=== PATIENT | male | born 1955 | race Caucasian/White ===

== ENCOUNTER 2025-01-13 20:03 | Emergency (ER) | payer MEDICARE, OTHER, SELFPAY ==
[2025-01-13 20:08] VITALS: BP 147/85
[2025-01-13 20:45] LABS: Urine Albumin 3+ (Neg - Trace); Urine Bilirubin Negative (Negative); Urine Character Clear (Clear); Urine Color Yellow; Urine Glucose Negative (Negative); Urine Ketone Negative (Negative); Urine Leukocyte 3+ (Negative); Urine Nitrite Positive (Negative); Urine Occult Blood 3+ (Negative); Urine Urobilinogen Negative (Neg - 1+)
[2025-01-13 20:55] LABS: Urine Squamous Cell 0-2 /LPF (Few)
[2025-01-13 20:56] LABS: Urine Bacteria Many (Negative); Urine White Cell >100 /HPF (0-5)
[2025-01-14 00:07] VITALS: BMI 34.9
[2025-01-14] MEDS: ROCEPHIN 1000 MG IV (00:18)
[2025-01-14 00:31] VITALS: BP 144/87
[2025-01-14 00:36] LABS: % Basophils 0.5 % (0-2); % Eosinophils 2.8 % (0-6); % Immature Granulocytes 1.2 % (0-0.5); % Lymphocytes 15.1 % (20.5-51.1); % Neutrophils 69.4 % (42.2-75.2); Absolute Basophils 0.1 10^3/uL (0-0.2); Absolute Eosinophils 0.3 10^3/uL (0-0.7); Absolute Immature Granulocytes 0.1 10^3/uL (0-0.05); Absolute Lymphocytes 1.5 10^3/uL (1.2-3.4); Absolute Monocytes 1.1 10^3/uL (0.1-0.6); Absolute Neutrophils 6.8 10^3/uL (1.4-6.5); Hematocrit 42.9 % (39.0-52.0); Hemoglobin 13.9 g/dL (13.0-18.0); Mean Corp Hgb Conc. 32.4 g/dL (33.0-37.0); Mean Corpuscular Volume 89.4 fL (80.0-94.0); Mean Platelet Volume 10.4 fL (7.4-10.4); Nucleated Red Blood Cells % 0 % (-); Platelet Count 313 10^3/uL (130-400); Red Cell Dist. Width 14.6 % (11.5-14.5); White Blood Cell Count 9.7 10^3/uL (4.8-10.8)
[2025-01-14 00:38] LABS: Blood Urea Nitrogen 37 mg/dl (9-20); Calcium 10.5 mg/dl (8.4-10.2); Carbon Dioxide 19 mmol/L (22-30); Chloride 115 mmol/L (98-107); Estimated Creatinine Clearance 68 ml/min; Glucose 121 mg/dl (70-99); Potassium 4.7 mmol/L (3.5-5.1); Sodium 145 mmol/L (135-145); eGFR > 60.00
--- NOTE | 2025-01-14 01:44 | ED.GENMED ---
History of Present Illness
General
Chief Complaint: Male Genito-Urinary Symptoms
Time Seen by Provider: 01/13/25 23:33
History of Present Illness
History of Present Illness:
69-year-old male complaining of burning with urination difficulty urinating progressive over days.
Past History
Past History
ED Past Medical History: HTN
ED Past Surgical History: Orthopedic and Urological
Social History
Personal: Single
Review of Systems
Review of Systems
All Other Systems: Not applicable
Constitutional: Denies fever or chills
Phy Exam
Physical Exam
Physical Exam:
GENERAL: Alert and oriented in no apparent distress
EYE: Orbits normal.
NECK: Supple, no significant adenopathy.
ENT: Pharynx without erythema
CARDIAC: Regular rate and rhythm without any obvious murmurs.
LUNGS: Clear breath sounds,normal
ABDOMEN: Soft, without focal tenderness or distention. Periumbilical hernia easily reducible
NEUROLOGICAL: Alert and oriented , grossly non-focal
SKIN: Warm and dry, no rash or lesion, no discoloration, skin intact.
MUSCULOSKELETAL: No edema,no deformity.Good color
PSYCH: Normal and appropriate interaction.
Course
Orders/Labs/Results
Orders:
Orders
01/13/25 20:38
Urinalysis Reflex To Culture Urgent
Date Specimen was Collected: 01/13/25
Time Specimen was Collected: 20:11
Urine Microscopic Reflex Cult Urgent
Urine Culture Urgent
RADHA Source: U
Specimen Description:
Date Specimen was Collected: 01/13/25
Time Specimen was Collected: 20:11
01/13/25 23:38
IV Insert/Care/Rem.- Treatment PRN
Basic Metabolic Panel Urgent
Complete Blood Count/With Diff Urgent
CefTRIAXone [Rocephin] 1,000 mg IV NOW STA
01/14/25
CT Abd/pel Without Iv Or Oral Urgent
Reason For Exam: UTI symptoms/history of kidney stones
01/14/25 01:43
Tamsulosin [Flomax] 0.4 mg PO NOW STA
Abnormal Lab Results
01/13/25 01/14/25
20:38 00:13
MCHC 32.4 L g/dL
(33.0-37.0)
RDW 14.6 H %
(11.5-14.5)
Abs Immat Gran (auto) 0.1 H 10^3/uL
(0-0.05)
Absolute Neuts (auto) 6.8 H 10^3/uL
(1.4-6.5)
Absolute Monos (auto) 1.1 H 10^3/uL
(0.1-0.6)
Immature Gran % 1.2 H %
(0-0.5)
Lymphocytes % 15.1 L %
(20.5-51.1)
Monocytes % 11.0 H %
(1.7-9.3)
Chloride 115 H mmol/L
(98-107)
Carbon Dioxide 19 L mmol/L
(22-30)
BUN 37 H mg/dl
(9-20)
Glucose 121 H mg/dl
(70-99)
Calcium 10.5 H mg/dl
(8.4-10.2)
Ur Occult Blood Reflex 3+ A
(Negative)
Urine Nitrite (Reflex) Positive A
(Negative)
Leukocyte Esterase Rfl 3+ A
(Negative)
Urine RBC 3-6 A /HPF
(0-2)
Urine WBC (Reflex) >100 A /HPF
(0-5)
Urine Bacteria (Reflex) Many A
(Negative)
Urine Albumin (Reflex) 3+ A
(Neg - Trace)
01/14/25 00:13
01/14/25 00:13
Vital Signs
Initial and Last Documented VS:
Initial Vital Signs
Temp Pulse Resp BP Pulse Ox
98.1 F 107 18 147/85 95
01/13/25 20:08 01/13/25 20:08 01/13/25 20:08 01/13/25 20:08 01/13/25 20:08
Last Documented Vital Signs
Temp Pulse Resp BP Pulse Ox
98.1 F 107 18 144/87 94
01/13/25 20:08 01/13/25 20:08 01/13/25 20:08 01/14/25 00:31 01/14/25 00:33
MDM/Problems Addressed
Differential Diagnosis Includes:
Patient describing UTI symptoms/possible prostatitis and mild outlet obstruction issues. Very nontoxic and medically stable. No fever no white count no chills no systemic symptoms.
*Radiology
Radiology exam reviewed: radiology read reviewed (Bladder wall thickening. Possible outlet obstruction. Mild bilateral hydro. Diverticuli. Lesion in the left kidney. Periumbilical hernia)
*Pulse Oximetry
Patient hypoxic: no
*Critical Care Note
Total Time (30-74mins, 75-104mins- exclusive of procedures): Not Applicable
Update Note
Update Note:
Patient likely has UTI like he has mild ongoing outlet obstruction and possible prostatitis. Discussed with urology. Was very plus minus on catheter. Would like to avoid the foreign body with the infection. Will do antibiotics Flomax and see if
his urine output increases with this approach. It was explained that he may need to come back for catheter if not improving. Also aware need for MRI of the kidney
ED Attending Note
-
Portions of this chart may have been created with voice recognition software.� Occasional wrong word or��sound alike� substitutions may have occurred due to the inherent limitations of voice recognition software.
Discharge Plan
Departure
Patient Disposition: Home (Routine Discharge)
Date of Disposition: 01/14/25
Time of Disposition: 01:45
Patient with high blood pressure during this ER visit?: Yes
Discharge Problem:
UTI/possible prostatitis, Renal lesion, Possible diverticulitis
Prescriptions:
New
cefdinir 300 mg capsule
300 mg PO BID 10 Days Qty: 20 0RF
tamsulosin [Flomax] 0.4 mg capsule
0.4 mg PO DAILY Qty: 14 0RF
No Action
metronidazole 500 MG tablet
500 mg PO TID Qty: 21 0RF
levofloxacin 500 MG tablet
500 mg PO DAILY Qty: 7 0RF
Referrals:
Alfonzo Osborne MD [Family Provider] -
Melo Carranza Jr., MD [Active] - Follow up in 5-7 days
Activity Restrictions/Additional Instructions:
If you are not urinating better in the next 24 to 36 hours you should return for a catheter
Call the urologist for follow-up
Follow-up MRI of your kidney as per the report
Also you should have a follow-up colonoscopy at some point in the near future
Return immediately with increased pain increased inability to urinate fever chills vomiting etc.
Interventions
Interventions:
*Risk Screen - Suicide Last Done: 01/13/25 20:11
*General Assessment Last Done: 01/13/25 20:11
*Neglect/Abuse Screening Last Done: 01/13/25 20:11
*ED- Fall Risk Assessment Last Done: 01/14/25 00:07
*ED COVID-19 Vaccine History Last Done: 01/13/25 20:11
ED-Male Genitourinary Assessment Last Done: 01/14/25 00:07
Discharge Date and Time
Print Language: GHANAIAN
[2025-01-14] MEDS: FLOMAX 0.4 MG PO (01:46)
== END 2025-01-14 02:17 | disposition home or self-care (01) ==
LOC: EMR 20:03
PROVIDERS: Student in an Organized Health Care Education/Training Program; EMERGENCY PHYSICIAN Emergency Medicine; FAMILY PHYSICIAN Family Medicine
DX: N39.0 Urinary tract infection, site not specified (principal); N28.89 Other specified disorders of kidney and ureter; I10 Essential (primary) hypertension
CPT/HCPCS: 99285; 96374; 74176; 80048; 81003; 81015; 85025; 87077; 87086; 87186

== ENCOUNTER 2025-03-26 16:24 | Emergency (ER) | payer MEDICARE, OTHER, SELFPAY ==
[2025-03-26 16:26] VITALS: BP 123/91
[2025-03-26 18:18] VITALS: BMI 34.5
[2025-03-26 19:00] VITALS: BP 152/84
[2025-03-26] MEDS: MOBIC 7.5 MG PO (19:31)
--- NOTE | 2025-03-26 23:59 | ED.GENMED ---
History of Present Illness
General
Chief Complaint: Flank Pain
Source: patient
Exam Limitations: none
Time Seen by Provider: 03/26/25 18:11
Nursing documentation reviewed up to this point in time: agreed with
History of Present Illness
History of Present Illness:
Patient to ED with complaint of right lower back pain with radiation to RLE. Symptoms started 2 weeks ago. Denies any bowel or bladdery symptoms, no weakness in extremities, no saddle paresthesia. Pain started while changing car oil. Brought
self to for eval.
Past History
Past History
ED Past Medical History: HTN
ED Past Surgical History: Orthopedic and Urological
Social History
Personal: Single
Review of Systems
Review of Systems
Allergies reviewed?: Yes
All Other Systems: ROS reviewed and negative except as documented in HPI and ROS
Constitutional: Reports no symptoms
EENT: Reports no symptoms
Respiratory: Reports no symptoms
Cardiac: Reports no symptoms
ABD/GI: Reports no symptoms
: Reports no symptoms
Musculoskeletal: Reports back pain (right lower back pain)
Skin: Reports no symptoms
Neurological: Reports other (radicular pain RLe)
Psychiatric: Reports no symptoms
Phy Exam
General Physical Exam
General Presentation: well appearing and no apparent distress
General age: appears stated age
General Skin: warm and dry
General Habitus: normal
General Mental: alert
General Hydration: appears well hydrated
Musculoskeletal Exam
Musculoskeletal Exam: full ROM and neuro vasc intact
Skin Exam
Skin Exam: normal color, warm/dry and no rash
Psychiatric Exam
Psychiatric Exam: normal mood/affect
Course
Orders/Labs/Results
Orders:
Orders
03/26/25 16:30
Lumbar Spine Complete, 4 View [CR Lumbar Spine Comp Min 4 Vw*] Urgent
Comment:
Reason For Exam: pain
03/26/25 19:09
Meloxicam [Mobic] 7.5 mg PO NOW STA
Vital Signs
Initial and Last Documented VS:
Initial Vital Signs
Temp Pulse Resp BP Pulse Ox
97.9 F 107 15 123/91 96
03/26/25 16:26 03/26/25 16:26 03/26/25 16:26 03/26/25 16:26 03/26/25 16:26
Last Documented Vital Signs
Temp Pulse Resp BP Pulse Ox
97.9 F 85 15 152/84 99
03/26/25 16:26 03/26/25 20:00 03/26/25 16:26 03/26/25 19:00 03/27/25 00:02
*Radiology
Radiology exam reviewed: radiology read reviewed
*Pulse Oximetry
SaO2: 99
Oxygen Mode of Delivery: Room air
Patient hypoxic: no
*Critical Care Note
Total Time (30-74mins, 75-104mins- exclusive of procedures): Not Applicable
Update Note
Update Note:
Patient to ED with low back pain with radiation to RLE. Symptoms started 2 weeks ago after working on his vehicle. He has full ROM to BLE. No saddle paresthesia, no bowel or bladder senation, equal strength and sensation to BLE. No concern for
cauda equina on this exam. Will place on steroid taper,short course of pain meds and he will follow upw ith his PCP. Given instructions on s/s to return to ED and he is agreeable to plan.
ED Attending Note
-
Portions of this chart may have been created with voice recognition software.� Occasional wrong word or��sound alike� substitutions may have occurred due to the inherent limitations of voice recognition software.
Discharge Plan
Departure
Patient Disposition: Home (Routine Discharge)
Date of Disposition: 03/26/25
Time of Disposition: 18:51
Patient with high blood pressure during this ER visit?: No
Condition: Good
Covid-19: Not Applicable
Discharge Problem:
Low back pain
Instructions: Low back pain - Discharge instructions, Cold therapy for pain, Sciatica - ED discharge instructions
Prescriptions:
New
meloxicam 7.5 mg tablet
7.5 mg PO DAILY Qty: 14 0RF
prednisone 10 mg Tablet
See Rx Instructions .ROUTE .COMPLEX Qty: 30 0RF
Rx Instructions:
Take By Mouth:
40 mg daily x3 days, 30 mg daily x3 days,
20 mg daily x3 days, 10 mg daily x3 days.
hydrocodone-acetaminophen 5-325 mg tablet
1 tab PO Q4H PRN (Reason: Pain) Qty: 10 0RF
No Action
metronidazole 500 MG tablet
500 mg PO TID Qty: 21 0RF
levofloxacin 500 MG tablet
500 mg PO DAILY Qty: 7 0RF
cefdinir 300 mg capsule
300 mg PO BID 10 Days Qty: 20 0RF
tamsulosin [Flomax] 0.4 mg capsule
0.4 mg PO DAILY Qty: 14 0RF
Referrals:
Alfonzo Osborne MD [Family Provider, Family Practice] - Follow up in 2-3 days
Interventions
Interventions:
*Risk Screen - Suicide Last Done: 03/26/25 16:26
*General Assessment Last Done: 03/26/25 16:26
*Neglect/Abuse Screening Last Done: 03/26/25 16:26
*ED- Fall Risk Assessment Last Done: 03/26/25 19:03
*ED COVID-19 Vaccine History Last Done: 03/26/25 16:26
*Nursing Disposition Last Done: 03/26/25 20:01
UB-Vpaouo-Utomkislee Assessment Last Done: 03/26/25 19:01
ED-Male Genitourinary Assessment Last Done: 03/26/25 19:01
Discharge Date and Time
Discharge Date/Time: 03/26/25 20:02
Print Language: SRI LANKAN
Musculoskeletal Injury Exam
Musculoskeletal Injury Exam
Right Lower Back:
Pain with Movement?: Moderate
Tender to palpation?: Moderate
Soft tissue swelling?: None
External deformity and angulation?: None
Joint effusion?: None
Contusion?: None
Hematoma-local bleeding into tissue?: None
Strain- Sprain- Tear (Connective tissue injury)?: Moderate
Crepitus with movement?: No
Joint instability?: No
Malalignment/deformity?: No
Range of motion: Limited
Distal skin color and temperature: normal-warm & good color
Capillary Refill: normal
Normal distal neurovascular exam?: Yes
== END 2025-03-26 20:02 | disposition home or self-care (01) ==
LOC: EMR 16:24
PROVIDERS: EMERGENCY PHYSICIAN Emergency Medicine; FAMILY PHYSICIAN Family Medicine
DX: M54.50 Low back pain, unspecified (principal); I10 Essential (primary) hypertension
CPT/HCPCS: 99283; 72110